=== PATIENT | female | born 1995 | race Caucasian/White ===

== ENCOUNTER 2017-11-23 00:03 | Inpatient (IN) | payer BC, OTHER ==
[~2017-11-23] VITALS: Ht 154.9 cm; Wt 49.9 kg
[2017-11-29] MEDS ORDERED: LOPERAMIDE HCL 2 MG CAPSULE PO PRN ×2 (00:30)
[2017-11-29] MEDS ORDERED: MIRALAX 17 GM POWD.PACK PO PRN (00:30)
[2017-11-29] MEDS ORDERED: DICYCLOMINE HCL 20 MG TABLET PO PRN (00:30)
[2017-11-29] MEDS ORDERED: ONDANSETRON ODT 4 MG TAB.RAPDIS SL PRN (00:30)
[2017-11-29] MEDS ORDERED: MAGNESIUM HYDROXIDE 30 ML LIQUID UDC PO PRN (00:30)
[2017-11-29] MEDS ORDERED: CLONIDINE HCL 0.1 MG TABLET PO PRN (00:30)
[2017-11-29] MEDS ORDERED: LORAZEPAM 1 MG TABLET PO PRN (00:30)
[2017-11-29] MEDS ORDERED: THIAMINE HCL 200 MG/2 ML VIAL IM ONE (00:30)
[2017-11-29] MEDS ORDERED: LORAZEPAM 2 MG/1 ML VIAL IM PRN (00:30)
[2017-11-29] MEDS ORDERED: MAG HYDROX/AL HYDROX/SIMETH 30 ML LIQUID UDC PO PRN (00:30)
[2017-11-29] MEDS ORDERED: ACETAMINOPHEN 325 MG TABLET PO PRN (00:30)
[2017-11-29] MEDS ORDERED: ONDANSETRON 4 MG/2 ML VIAL IM PRN (00:30)
--- NOTE | 2017-11-29 00:30 | NUR ---
PRE-ADMISSION NOTE Client seen at intake at 0025, alert and oriented x4. Client appears anxious, slightly flushed, and mildly withdrawing from ETOH. Clients vital signs as follows: BP 114/74, HR 66, RR 18, SpO2 98%, pain 0/10, temp 98.3. No complaints of chest pain or SOB. Patient is ambulatory and coherent, able to sign consent forms and understand instructions. Client denies allergies to medications or food and denies seizure history. SN informed client about unit policies and protocols, including vital signs every 4 hours, skin assessment and body check for contraband upon arrival to the unit. Client verbalized understanding to all instructions.
[2017-11-29 01:17] LABS: ETHANOL < 3 MG/DL (0-0)
[2017-11-29 01:24] LABS: ALANINE AMINOTRANSFERASE 20 U/L (14-59); ALKALINE PHOSPHATASE 65 U/L (50-136); AMYLASE 39 U/L (25-115); ASPARTATE AMINOTRANSFERASE 18 U/L (15-37); BILIRUBIN,TOTAL 0.3 mg/dL (0.2-1.0); CARBON DIOXIDE 29 mmol/L (21-32); CHLORIDE 104 mmol/L (98-107); CREATININE 0.7 mg/dL (0.6-1.3); GLUCOSE 61 mg/dL (74-106); LIPASE 148 U/L (73-393); POTASSIUM 3.9 mmol/L (3.5-5.1); TOTAL PROTEIN, SERUM 8.3 g/dL (6.4-8.2); UREA NITROGEN, BLOOD 15 mg/dL (7-18)
[2017-11-29 01:31] LABS: THYROID STIMULATING HORMONE 2.906 mIU/mL (0.358-3.740)
[2017-11-29 01:40] LABS: *URINE HCG, QUAL NEGATIVE (NEGATIVE)
--- NOTE | 2017-11-29 01:45 | NUR ---
ADMISSION NOTE Patient is a 21-year-old female admitted to the unit today 11/29/17, on the unit at 0054. Patient is being admitted for ETOH withdrawal. CIWA upon admission is 7, patient mildly withdrawing at this time. Patient reports smoking marijuana prior to arrival. Patient is alert and oriented x4, ambulatory and coherent at this time. When asked about common withdrawal symptoms, patient reports, I have never been sober for longer than a few days; I don't ever get sweaty or nauseous, I just want to keep drinking." Patient denies history of any seizures. Substance Abuse History: 1. ETOH: Patient has been drinking unspecified/unknown amounts of various kinds of alcohol (wine, hard liquor, beer) on a daily basis for the past three week. Each night she has blacked out without recollection of the previous nights event. Patient has been drinking consistently for 4 years since she was [id number]. Patient last drank 7-8 hours before arriving to [facility] on 11/28/17, 1 shot of vodka. 2. Cannabis: 1 gram a day via smoke inhalation for 1.5 years. Patient last used prior to arrival on 11/28/17. Patient first began using cannabis at age 17. Patient states that she is seeking treatment today because, "I realized my drinking was becoming a real problem about 6 months ago." Patient states, "Well, my mom made me, I didn't really have any other option. But I want to be here." Patient reports that she has not been sober for longer than a few days at a time over the last 4 years, but that the last year has been noticeably worse. Patient has been drinking until blacking out consistently for the past 3 weeks, but does not know how much she drank or what kinds of alcohol she consumed. Patient states, "I don't ever get sweaty or nauseous, I just want to keep drinking" when asked about withdrawal symptoms. Patient began drinking heavily after breaking up with her fiance 3 weeks ago. Patient reports that drinking has gotten out of hand, and has been negatively impacting her relationships, schoolwork and career opportunities. Patient has only tried attending an AA meeting once, stating, "I got a DUI 2 years ago and they made me go to a meeting. I really liked it and I cried and thought 'this is good' but then I never went back." Patient reports, "I was living with my ex-fianc, but I moved in with my parents 3 weeks ago." Patient also stated that she began working at a new job recently, "I just started working at [employer] in [place] and it was the best job I ever had. But I started messing things up because of drinking. I left on good terms though." Patient states that her personal motivator is "my future." Patient reports that this is her first attempt at detox and rehabilitation. Patient reports having a strong support system, stating that her family, although adopted, are very loving and supportive. Patient has a initial CIWA of 7, vitals as follows: 114/74, HR 66, RR 18, SpO2 98%, pain 0/10, temp 98.3. Patients skin is intact, lung sounds are clear bilaterally upon auscultation, bowel sounds present in all four quadrants. Patient denies any past medical history with exception to bloody stool four years ago, with a colonoscopy that did not reveal anything. Patient reports that her biological family has a history of Crohns disease, but does not know very much else about her family history. Her adoptive family consists of mother, father, and a sister. Patient has had a fractured left pinky finger years ago. Patient has had different psych diagnoses over the years, depression, bipolar and ADHD. Patient takes multivitamin daily with probiotics and Lexapro 20mg daily. Patient has been educated about unit protocol. Patient is on fall and seizure precautions with no history of seizure. Safety measures in place, side rails up x2, bed locked in low position, call light within reach. Will continue to monitor.
[2017-11-29 01:48] LABS: *AMPHETAMINE, URINE NEGATIVE (NEGATIVE); *BARBITURATE, URINE NEGATIVE (NEGATIVE); *CANNABINOID, URINE POSITIVE (NEGATIVE); *COCCAINE, URINE NEGATIVE (NEGATIVE); *OPIATE, URINE NEGATIVE (NEGATIVE); *PHENCYCLIDINE SCREEN,URINE NEGATIVE (NEGATIVE)
[2017-11-29 02:27] LABS: BASOPHILS % (AUTO) 0.4 % (0.0-2.0); EOSINOPHILS # (AUTO) 0.1 K/uL (0.0-0.7); EOSINOPHILS % (AUTO) 0.7 % (0.0-7.0); HEMATOCRIT 38.8 % (31.2-41.9); HEMOGLOBIN 13.2 g/dL (10.9-14.3); LYMPHOCYTES # (AUTO) 1.7 K/uL (20.0-40.0); LYMPHOCYTES % (AUTO) 16.4 % (20.5-51.5); MEAN CORPUSCULAR HEMOGLOBIN 29.9 uug (24.7-32.8); MEAN CORPUSCULAR HGB CONC 34 g/dL (32.3-35.6); MEAN CORPUSCULAR VOLUME 87.5 fL (75.5-95.3); MONOCYTES # (AUTO) 0.7 K/uL (2.0-10.0); MONOCYTES % (AUTO) 7.1 % (0.0-11.0); NEUTROPHILS # (AUTO) 7.6 K/uL (1.8-8.9); NEUTROPHILS % (AUTO) 75.4 % (38.5-71.5); PLATELET COUNT (AUTO) 230 K/uL (179-408); RED BLOOD CELL COUNT(AUTO) 4.43 MIL/uL (3.63-4.92); WHITE BLOOD COUNT (AUTO) 10.1 K/uL (3.8-11.8)
[2017-11-29 04:00] VITALS: BP 116/50
[2017-11-29] MEDS ORDERED: LACT1CAP PO (04:57)
[2017-11-29] MEDS ORDERED: ESCI20TA37 PO (04:57)
[2017-11-29] MEDS ORDERED: MULT-260 PO (04:57)
--- NOTE | 2017-11-29 07:45 | NUR ---
START OF SHIFT Endorse rcvd from incoming nurse, client is in bed, a/o x 4. Client presents with depressed mood, flat affect, and difficulty concentrating. Client denies any chest pain, headache, N/V/D. She denies any SI/HI. Client reports anxiety, restless legs, sweats, chills, and fatigue. Last CIWA 7 @ 0400. Client slept 3 hrs. Encourage client to increase PO fluid to facilitate detox. Encourage client to participate in group therapy to learn skills to maintain sober. Seizure precautions in place. Bed in lowest/locked position. Side rails x 2 up/padded. Call light within reach.
--- NOTE | 2017-11-29 07:50 | NUR ---
END OF SHIFT Patient is a 21-year-old female admitted to the unit 11/29/17 for ETOH withdrawal. Patient is currently not on a taper, PRN Ativan on hand. Patient last CIWA 7. No PRNs given during shift. Patient is alert and oriented x4. Patient slept for 3 hours, total intake of 500mL, void x1, stool x0. Patient is on fall and seizure precautions, no seizure history. Safety measures in place, side rails up x2, bed locked in low position, call light within reach. Will endorse to day shift.
[2017-11-29 08:06] VITALS: BP 113/74
[2017-11-29] MEDS: FOLIC ACID 1 MG TABLET PO SCH (09:13)
[2017-11-29] MEDS: THIAMINE HCL 100 MG TABLET PO SCH (09:13)
[2017-11-29] MEDS: MULTIVITAMINS,THERAPEUTIC TABLET PO SCH (09:13)
[2017-11-29] MEDS: ESCITALOPRAM OXALATE 10 MG TABLET PO SCH (11:50)
[2017-11-29 12:10] VITALS: BP 129/86
[2017-11-29 16:55] VITALS: BP 114/83
--- NOTE | 2017-11-29 19:01 | NUR ---
END OF SHIFT Endorse given to incoming nurse, client is in bed, a/o x 4. Client continues to present with depressed mood, flat affect, anxiety, chills, and fatigue. Last CIWA 7 @ 1600. Adequate PO fluid intake 2990mL, void x 5, stool x 1. Client consumes 50-75% of meals. Client is compliant with 1/3 of group therapy. Seizure precautions in place. Bed in lowest/locked position. Side rails x 2 up/padded. Call light within reach.
--- NOTE | 2017-11-29 19:20 | NUR ---
START OF SHIFT Patient is a 21-year-old female admitted on 11/29/17 for ETOH withdrawal. Patient is currently not on a taper, with PRN Ativan on hand for any signs and symptoms of withdrawal. Patients last CIWA reported as 5 by day shift. Patient received no PRN medications during the day. Per endorsement, patient attended groups and completed school homework today. Upon assessment, patient is alert and oriented x4, awake and coherent. Patient complains of a headache 6/10 and reports feeling that the headache was related to taking Lexapro. Patient is on fall and seizure precautions with no seizure history. Safety measures in place, side rails up x2, bed locked in low position, call light within reach. Will continue to monitor.
[2017-11-29 20:00] VITALS: BP 131/71
[2017-11-29] MEDS: diphenhydrAMINE 50 MG CAPSULE PO PRN (21:04)
[2017-11-29] MEDS: IBUPROFEN 400 MG TABLET PO PRN (21:05)
[2017-11-29] MEDS: LORAZEPAM 1 MG TABLET PO PRN (21:05)
--- NOTE | 2017-11-29 21:05 | NUR ---
PRN BENADRYL, ATIVAN & MOTRIN Patient reports feeling "wired" and having difficulty sleeping. Patient has a headache of 7/10 on pain scale and a current CIWA of 11. PRN Motrin and Ativan given PO. Safety measures in place, side rails up x2, bed locked in low position, call light within reach. Will monitor for effectiveness.
--- NOTE | 2017-11-29 22:05 | NUR ---
PRN BENADRYL, ATIVAN & MOTRIN REASSESSMENT Patient reports feeling sleepy and relaxed after her shower. Patient's headache is now 4/10. Patient has a CIWA of 9. PRN medications effective. Safety measures in place, side rails up x2, bed locked in low position, call light within reach. Will continue to monitor.
[2017-11-30] VITALS: BP 119/58
--- NOTE | 2017-11-30 | NUR ---
CIWA DEFERRED CIWA deferred due to patient sleeping; to be assessed and scored while patient is awake. Respirations even and unlabored, 16/min. Safety measures in place, side rails up x2, bed locked in low position, call light within reach. Will continue to monitor.
[2017-11-30 04:00] VITALS: BP 112/64
--- NOTE | 2017-11-30 04:00 | NUR ---
CIWA DEFERRED CIWA deferred at this time due to patient sleeping; to be assessed and scored while patient is awake. Respirations even and unlabored, 16/min. Safety measures are in place, call light is within reach. Will continue to monitor.
--- NOTE | 2017-11-30 06:38 | NUR ---
END OF SHIFT Patient is a 21-year-old female admitted on 11/29/17 for ETOH withdrawal. Patient is currently not on a taper, with PRN Ativan on hand for any signs and symptoms of withdrawal. Patients last CIWA 9. Patient received PRN Motrin, Benadryl, and Ativan 1mg; all noted to be effective. Patient slept for 8 hours, total intake of 740mL, void x1, stool x0. Patient is on fall and seizure precautions with no seizure history. Safety measures in place, side rails up x2, bed locked in low position, call light within reach. Will endorse to day shift.
--- NOTE | 2017-11-30 07:32 | NUR ---
START OF SHIFT Pt is a 21 yr old female, AAOx4. Pt was admitted on 11/29/17 for ETOH withdrawal and is on PRN's for s/s of w/d. Received report from portable irrigation operator nurse. Pt received Benadryl PRN, Motrin PRN and Ativan PRN for s/s of w/d. medication was effective. Pt slept for 8 hrs. Last CIWA score was 9 at 2205. Pt is currently c/o anxiety but is able to cope with anxiety level. Skin is intact, warm and moist to touch. Pt was encouraged increase fluid intake for hydration. Safety precautions observed. Call light is within reach. will continue to monitor.
[2017-11-30 08:00] VITALS: BP 117/59
[2017-11-30] MEDS: FOLIC ACID 1 MG TABLET PO SCH (08:54)
[2017-11-30] MEDS: THIAMINE HCL 100 MG TABLET PO SCH (08:54)
[2017-11-30] MEDS: MULTIVITAMINS,THERAPEUTIC TABLET PO SCH (08:54)
[2017-11-30] MEDS: ESCITALOPRAM OXALATE 10 MG TABLET PO SCH (08:56)
[2017-11-30] MEDS: LORAZEPAM 1 MG TABLET PO PRN (08:58)
--- NOTE | 2017-11-30 08:58 | NUR ---
PRN GIVEN Pt was noted with anxiety, agitation, fine tremors and sweats. CIWA score was 11. Ativan 1mg PO PRN was given as ordered. Medication debbie well. Will continue to monitor.
[2017-11-30] MEDS ORDERED: TUBERCULIN,PURIF.PROT.DERIV. 5 TU/0.1 ML TEST ID ONE (09:00)
--- NOTE | 2017-11-30 09:00 | NUR ---
TB REFUSED Pt refused to have TB skin test. Pt is not experiencing any cough or respiratory infection. Dr. Fraire is made aware with NNO.
--- NOTE | 2017-11-30 10:00 | NUR ---
PRN RE-ASSESSMENT Ativan 1mg PO PRN was effective. CIWA score subsided from 10 to 6. Will continue to monitor.
[2017-11-30 12:00] VITALS: BP 114/75
[2017-11-30 13:06] LABS: HEPATITIS B SURFACE AG Negative (Negative)
[2017-11-30] MEDS ORDERED: HYDROXYZINE PAMOATE 25 MG CAPSULE PO PRN (13:30)
[2017-11-30] MEDS ORDERED: CLON0.1T14 PO (13:45)
[2017-11-30] MEDS ORDERED: DIPH50CA37 PO (13:45)
[2017-11-30] MEDS ORDERED: HYDR-3895 PO (13:46)
--- NOTE | 2017-11-30 13:46 | NUR ---
PRN GIVEN Pt c/o increase anxiety and was observed crying. Vistaril 50mg PO PRN was given as ordered. Will continue to monitor.
--- NOTE | 2017-11-30 14:46 | NUR ---
PRN RE-ASSESSMENT Vistaril PRN was effective. Pt continues to c/o anxiety but is able to cope with anxiety level. Will continue to monitor.
[2017-11-30 16:00] VITALS: BP 130/75
--- NOTE | 2017-11-30 19:05 | NUR ---
END OF SHIFT Pt is a 21 yr old female, AAOx4. Pt was admitted on 11/29/17 for ETOH withdrawal and is on PRN's for s/s of w/d. Pt has been cooperative with medication regimen and plan of care. Pt attended group therapy. Pt was c/o anxiety, agitation and chills throughout the day. Pt was noted with fine tremors on BUE. Skin is intact, warm and moist to touch. Pt received Ativan 1mg PO PRN at 0858 for CIWA of 10 and Vistaril 50mg PO PRN at 1341. Medication was effective. Last CIWA score was 6 at 1600. Pt is to be discharged tomorrow on 12/01/17 to [facility]. Pt was encouraged increase fluid intake for hydration. Safety precautions observed. Call light is within reach. Endorsed to overnight caregiver nurse to continue with care.
[2017-11-30 20:00] VITALS: BP 121/77
--- NOTE | 2017-11-30 20:00 | NUR ---
START OF SHIFT NOTE RECEIVED REPORT FROM DAY SHIFT NURSE. PATIENT IS A 21 YEAR OLD FEMALE ADMITTED FOR ETOH WITHDRAWAL. PATIENT WAS UNDER OBSERVATION, ON PRN AND NOT ON TAPER. PATIENT IS MEDICALLY CLEARED TO BE DISCHARGE TOMORROW. PATIENT WAS GIVEN PRN ATIVAN . LAST CIWA 6. PATIENT LEXAPRO WAS DECREASED TO [address] BALBUENA. PATIENT ALERT AND ORIENTED X 4. RESPIRATION EVEN AND UNLABORED. PATIENT PRESENT WITH ANXIETY AND RESTLESSNESS. SAFETY MEASURES IN PLACE. CALL LIGHT IN REACH. WILL CONTINUE TO MONITOR.
[2017-11-30] MEDS: diphenhydrAMINE 50 MG CAPSULE PO PRN (22:33)
--- NOTE | 2017-11-30 22:33 | NUR ---
NADIA BLANCA ADMIN PATIENT REQUESTS FOR SLEEP AID. WILL MONITOR FOR EFFECTIVENESS
[2017-11-30] MEDS: IBUPROFEN 400 MG TABLET PO PRN (22:44)
--- NOTE | 2017-11-30 22:44 | NUR ---
PRN MOTRIN ADMINISTRATION PATIENT C/O HEADACHE. WILL MONITOR FOR EFFECTIVENESS
--- NOTE | 2017-11-30 23:44 | NUR ---
PRN MOTRIN RE-ASSESSMENT PATIENT STATES MOTRIN HELPFUL AND EFFECTIVE. WILL CONTINUE TO MONITOR.
--- NOTE | 2017-12-01 | NUR ---
PRN BENADRYL/CIWA DEFERRED PATIENT SLEEPING. RESPIRATION EVEN AND UNLABORED. VS REFUSED. WILL CONTINUE TO MONITOR
--- NOTE | 2017-12-01 04:00 | NUR ---
CIWA DEFERRED PATIENT SLEEPING. RESPIRATION EVEN AND UNLABORED. VS REFUSED. WILL CONTINUE TO MONITOR
--- NOTE | 2017-12-01 07:15 | NUR ---
END OF SHIFT NOTE PATIENT SLEPT 7 HOURS. FLUID INTAKE 1,296 ML. VOIDED X 1. BM X 1. PATIENT WAS UNDER OBSERVATION, ON PRN AND NOT ON TAPER. PATIENT IS MEDICALLY CLEARED TO BE DISCHARGE TODAY . PATIENT LEXAPRO WAS DECREASED TO [address] BALBUENA. PATIENT ALERT AND ORIENTED X 4. RESPIRATION EVEN AND UNLABORED. PATIENT PRESENT WITH ANXIETY AND RESTLESSNESS. PATIENT WAS GIVEN PRN MOTRIN AND BENADRYL. SAFETY MEASURES IN PLACE. CALL LIGHT IN REACH. WILL CONTINUE TO MONITOR.LAST CIWA 6.
--- NOTE | 2017-12-01 07:30 | NUR ---
Start of Shift Toe Stapler received report on 21 year old female admitted to [facility] on 11/29/17 for medical management of ETOH withdrawals. Pt endorses full code, regular diet and NKA. Endorses no PMH, no history of seizures, with a PPH of Depression, Bipolar DO, ADHD and Insomnia. Pt has OR Ativan, no taper and is preparing for discharge this am. Pts last CIWA 6, recorded at 1999, per report. Pt was administered PRN Benadryl(insomnia) and Motrin(pain) on NOC, per report. Toe Stapler encounters pt in pts room, resting with eyes closed and even and unlabored respirations, 16. Bed in low position with wheels locked and side rails up x2. Will continue to monitor, support and encourage according to plan of care.
[2017-12-01 08:27] VITALS: BP 105/59
[2017-12-01] MEDS: MULTIVITAMINS,THERAPEUTIC TABLET PO SCH (08:34)
[2017-12-01] MEDS: THIAMINE HCL 100 MG TABLET PO SCH (08:34)
[2017-12-01] MEDS: FOLIC ACID 1 MG TABLET PO SCH (08:34)
[2017-12-01] MEDS ORDERED: ESCITALOPRAM OXALATE 10 MG TABLET PO SCH (09:00)
--- NOTE | 2017-12-01 09:45 | NUR ---
Discharge Pt educated on importance of continued sobriety, follow-up care and medication compliance. Pt educated on discharge educational material. Pt educated on timing, route, and indication of medication. Pt returned home medication. Pt signed all discharge paperwork, including return of home medication. Pt provided with copies of all paperwork, including labs, prescriptions and educational material. Pt is A/O x4 and makes needs known. Denies SI/HI, A/VH or any other associated symptoms. Pt is clear of speech and has a linear thought process, with normal affect and congruent mood. Pts last CIWA 4, prior to discharge. Pt is stable for discharge and is escorted to awaiting private car where pt was transported to RTC and left the property
[2017-12-01 13:06] LABS: *GC NAA Negative (Negative)
[2017-12-01 18:08] LABS: *TRIC.VAG. NAA Negative (Negative)
== END 2017-12-01 09:45 | disposition other institution (70) | DRG 895 ==
LOC: SRC 11-29 00:04
PROVIDERS: ADMIT Internal Medicine; ATTEND Internal Medicine
PROC: HZ2ZZZZ Detoxification Services for Substance Abuse Treatment (ICD-10-PCS; principal; 2017-11-29)
PROC: HZ41ZZZ Group Counseling for Substance Abuse Treatment, Behavioral (ICD-10-PCS; 2017-11-30)
DX: F10.230 Alcohol dependence with withdrawal, uncomplicated (principal); F31.32 Bipolar disorder, current episode depressed, moderate; F17.210 Nicotine dependence, cigarettes, uncomplicated; F12.90 Cannabis use, unspecified, uncomplicated; Y90.0 Blood alcohol level of less than 20 mg/100 ml; Z80.3 Family history of malignant neoplasm of breast; Z82.49 Family history of ischemic heart disease and other diseases of the circulatory system; Z83.79 Family history of other diseases of the digestive system; F90.9 Attention-deficit hyperactivity disorder, unspecified type; Z79.899 Other long term (current) drug therapy; G47.00 Insomnia, unspecified
CPT/HCPCS: 36415; 70030-TC; 80307; 80349; 83690; 83735; 84443; 84703; 85025; 86592; 86705; 86803; 87340; 87491; 87806; G0480; Q0163